=== PATIENT | male | born 1960 | race American Indian/Alaskan Native ===

== ENCOUNTER 2025-04-17 16:42 | Emergency (ER) | payer OTHER, SELFPAY ==
[2025-04-17 16:51] VITALS: BP 148/86; PULSE 70; RESP 18; TEMP 36.9; O2SAT 97
--- NOTE | 2025-04-17 16:55 | XR_ITS ---
Examination: CT right wrist, without contrast. 2-D sagittal reconstructions. 2-D coronal reconstructions. 3-D reconstructions. Date and time of exam:April 17, 2025 1747 hours INDICATIONS: Horse stepped on the patient's wrist one month ago with persistent wrist pain CTDI: vol (mGy):4.17 DLP: (mGycm):91.8 Technique: Multiple 1.25 mm axial sections of the left wrist without intravenous contrast have been obtained. 2-D sagittal and coronal reconstructions have been obtained. 3-D reconstructions have been obtained. Low dose protocols were performed. One or more of the following dose reduction techniques were used; automated exposure control, adjustment of the mA and/or KV according to patient size, use of iterative reconstruction technique. Findings: Distal radius distal ulna is intact Tiny fracture fragments, coronal image 79, off the palmar surface of the capitate No dislocation No foreign body IMPRESSION: Tiny fracture fragments off the palmar surface of the capitate Recommend elective MRI wrist without intravenous contrast follow-up
--- NOTE | 2025-04-17 16:55 | XR_ITS ---
Examination: Hand, right 3 views Technique: Hand AP, oblique, lateral 3 views Date and time of exam: April 17, 2025, 1703 hours INDICATIONS: Injury to the hand today, hand pain. FINDINGS: No acute fracture. No dislocation. No foreign body IMPRESSION: No acute fracture.
--- NOTE | 2025-04-17 16:55 | XR_ITS ---
Examination: Wrist, right 3 views Technique: Wrist AP, oblique, lateral 3 views Date and time of exam: April 17, 2025 1712 hours INDICATIONS: Injury to the wrist today, wrist pain. FINDINGS: No fracture or dislocation. No foreign body IMPRESSION: No acute fracture
--- NOTE | 2025-04-17 16:55 | PD.EDRME ---
Rapid Medical Screening Exam E Arrival date/time: 04/17/25 16:42 64-year-old male presents to the emergency department today stating an injury to his right wrist approximately 2 months ago he reports his horse stepped on him patient more since then has been having intermittent pain today he reports he left at about 120 pound bail of hay when he did so he had significant pain in the right wrist Chief Complaint: Hand/Wrist Problems Time Seen by Provider: 04/17/25 16:50 Vital signs: Vital Signs Temperature 98.5 F 04/17/25 16:51 Pulse Rate 70 04/17/25 16:51 Respiratory Rate 18 04/17/25 16:51 Blood Pressure 148/86 H 04/17/25 16:51 Pulse Oximetry (%) 97 04/17/25 16:51 Oxygen Delivery Method Room Air 04/17/25 16:51
--- NOTE | 2025-04-17 20:33 | EDNOTE_ITS ---
Upper Extremity Injury RME/HPI General Chief Complaint: Hand/Wrist Problems Stated Complaint: RIGHT WRIST/HAND INJURY Time Seen by Provider: 04/17/25 16:50 Arrival date/time: 04/17/25 16:42 RME / HPI RME / HPI narrative: 0 64-year-old male presents to the emergency department today stating an injury to his right wrist approximately 2 months ago he reports his horse stepped on him patient more since then has been having intermittent pain today he reports he left at about 120 pound bail of hay when he did so he had significant pain in the right wrist. Patient denies any other injury no medications taken prior to arrival. Related Data Previous Rx's ?Medication ?Instructions ?Recorded acetaminophen 300 mg-codeine 30 mg 1 tab PO Q6H PRN pa in #20 tabs 04/17/25 tablet Allergies Allergy/AdvReac Type Severity Reaction Status Date / Time No Known Allergies Allergy Verified 04/17/25 16:44 Review of Systems Review of Systems Narrative Review of Systems: Review of system reviewed and within normal limits except mentioned in HPI ED Exam Narrative Physical exam: VITAL SIGNS: Reviewed. GENERAL APPEARANCE: Alert and interactive, follows commands, no acute distress, HEAD AND FACE: Non-traumatic. ENT: PERRL, pink conjunctivitis, eyelid no trauma, Mucous membrane moist. NECK: Supple, nontender, no nuchal rigidity. MUSCULOSKELETAL: low back nontender, full range of motion. EXTREMITIES: Wrist tenderness, more on the medial wrist, with limitation range of motion. Distal neurovascular status intact on the right fingers SKIN: Color pink, dry, no rash, no lacerations, no abrasions, no contusions. LYMPHATICS: Deferred. Course Quality Measures none Orders Category Date Time Status CT wrist RT wo con Stat Exams 04/17/25 16:55 Completed XR hand comp RT min 3V Stat Exams 04/17/25 16:55 Completed XR wrist comp RT min 3V Stat Exams 04/17/25 16:55 Completed Ketorolac Inj [Toradol Inj] Med 04/17/25 20:29 Discontinued 30 mg IM X1 ONE Vital Signs Vital signs: Vital Signs Temperature 98.5 F 04/17/25 16:51 Pulse Rate 70 04/17/25 16:51 Respiratory Rate 18 04/17/25 16:51 Blood Pressure 148/86 H 04/17/25 16:51 Pulse Oximetry (%) 97 04/17/25 16:51 Oxygen Delivery Method Room Air 04/17/25 16:51 Extremity Injury MDM Narrative MDM Narrative:: 64-year-old male presents to the emergency department today stating an injury to his right wrist approximately 2 months ago he reports his horse stepped on him patient more since then has been having intermittent pain today he reports he left at about 120 pound bail of hay when he did so he had significant pain in the right wrist. Patient denies any other injury no medications taken prior to arrival. CT scan of the wrist showed chip fracture of the capitate. Otherwise unremarkable. Results discussed with the patient. Patient is currently wearing wrist splint. Patient was advised to continue using the wrist splint, and as per referral to hand specialist MD. Patient agrees with the plan Patient data External records reviewed:: None Clinical information provided by:: patient Social determinants that could affect healthcare access:: none Patient has the following chronic illnesses:: None How is presenting disease/condition affected by chronic disease/condition?: no chronic disease Evaluation data The following diagnostics were reviewed and interpreted by me:: radiology exam(s) Lab and/or radiology exams considered but not ordered:: None Interpretation Summary: None Medications / Prescriptions Medications or Prescriptions considered but not ordered:: None Medication administrations:: Medication Administration History Discontinued Medications Ketorolac Tromethamine (Ketorolac Inj 60 Mg/2 Ml Vial) 30 mg IM X1 ONE Stop: 04/17/25 20:30 Toradol IM Consultations Consultation(s) initiated? (list below): No Diagnosis Upper Extremity Injury Differential Diagnosis: sprain and strain of wrist and other (Wrist fracture, capitate chip fracture) Most likely diagnosis given after review of the tests above:: Wrist sprain, capitate chip fracture Admission Indicated Admission indicated?: not indicated Admission Request Was there a request for admission?: No Disposition Plan Disposition Plan: Discharge Discharge Attestation Discharge Attestation: The patient was given an opportunity to ask questions and understood the discharge instructions. Discharge instructions specifically effects, indications for sooner follow up or return to the emergency department, and the expected course of current diagnosis. Patient condition: Stable Discharge Plan Plan Patient Disposition: HOME (Self Care) Discharge Disposition comment: Stable Prescriptions/Referrals Prescriptions/Med Rec: New acetaminophen-codeine 300-30 mg tablet 1 tab PO Q6H PRN (Reason: pain) Qty: 20 0RF Referrals: No Primary/Family,Physician [Primary Care Provider] - In 1 week Problem List Clinical Impression: Pain in wrist, Carpal bone fracture Patient/Caregiver Discharge Instructions Education Materials: ED Fracture, Wrist, General Additional Instructions: Thank you for the opportunity for serving you today. You are stable for discharged . You are advised to: Follow-up with your PCP in 1 to 2 days Return to ED for worsening of symptoms Increase oral fluids Take medication as prescribed Wear your wrist splint for the next 4 to 6 weeks As your PCP to refer you to a hand specialist Print Language: Egyptian Stand Alone Forms: Norma Award Info., Patient Portal Info Letter
[2025-04-17] MEDS: KETOROLAC INJ 60 MG/2 ML VIAL 30 MG IM (20:39)
== END 2025-04-17 20:48 | disposition home or self-care (01) ==
PROVIDERS: Emergency Provider Family Medicine
DX: S62.101A Fracture of unspecified carpal bone, right wrist, initial encounter for closed fracture (principal); W55.19XA Other contact with horse, initial encounter
CPT/HCPCS: 73110; 73130; 73200; 96372; 99284; J1885